=== PATIENT | female | born 1995 | race African-American/Black ===

== ENCOUNTER 2017-07-04 16:42 | Inpatient (IN) | payer MEDICAID ==
[~2017-07-04 16:42] MED LIST: Metoclopramide 10 MG/2 ML SDV ONE
[2017-07-04] MEDS ORDERED: Metoclopramide 10 MG/2 ML SDV IVPUSH ONE (16:56)
[2017-07-04] MEDS ORDERED: Citric Acid/Sodium Citrate Solution 30 ML Cup PO ONE (16:56)
[2017-07-04] MEDS ORDERED: Sodium Chloride 0.9% 10 ML Syringe FLUSH PRN (16:56)
--- NOTE | 2017-07-04 17:01 | PCM.LDHP ---
L&D History of Present Illness - General Date of Service: 07/04/17 Admit Problem/Dx: Patient Status Order with Admit Dx/Problem 07/04/17 16:57 Patient Status [ADT] Routine Admission Diagnosis/Problem Admission Diagnosis/Problem section Source of Information: Patient History Limitations: Reports: No Limitations - History of Present Illness Introduction:: 22 year old at 36w6d here with decreased movement for 3 days presented to clinic to see Dr. Fowler. Had non-reactive NST and BPP /10. Plan now. PNC with Dr. Fowler without complications other than transverse lie. - Related Data Allergies/Adverse Reactions: Allergies Allergy/AdvReac Type Severity Reaction Status Date / Time No Known Allergies Allergy Verified 11/15/15 23:10 Home Medications: Home Meds Vit No.129/Iron/FA [ Tablet] 1 each PO DAILY 11/15/15 [History] Past Medical History - Past Health History Medical/Surgical History: Denies Medical/Surgical History Social & Family History - Tobacco Use Smoking Status *Q: Former Smoker - Recreational Drug Use Recreational Drug Use: No - Living Situation & Occupation Living situation: Reports: with Significant Other Occupation: Employed H&P Review of Systems - Review of Systems: Review Of Systems: See Below General: Reports: No Symptoms HEENT: Reports: No Symptoms Pulmonary: Reports: No Symptoms Cardiovascular: Reports: No Symptoms Gastrointestinal: Reports: No Symptoms Genitourinary: Reports: No Symptoms Musculoskeletal: Reports: No Symptoms Skin: Reports: No Symptoms Psychiatric: Reports: No Symptoms Neurological: Reports: No Symptoms Hematologic/Lymphatic: Reports: No Symptoms Immunologic: Reports: No Symptoms L&D Exam - Exam Exam: See Below - OB Specific Contraction Intensity: Irritability Presentation: Transverse - Exam General: Alert, Oriented HEENT: PERRLA, Conjunctiva Clear, EACs Clear, EOMI, Hearing Intact, Mucosa Moist & [place], Nares Patent, Normal Nasal Septum, Posterior Pharynx Clear, TMs Clear Neck: Supple, Trachea Midline Lungs: Clear to Auscultation, Normal Respiratory Effort Cardiovascular: Regular Rate, Regular Rhythm GI/Abdominal Exam: Normal Bowel Sounds, Soft, Non-Tender, No Organomegaly, No Distention, No Abnormal Bruit, No Mass, Pelvis Stable Genitourinary: Normal external exam, Normal bimanual exam, Normal speculum exam Back Exam: Normal Inspection, Full Range of Motion Extremities: Normal Inspection, Normal Range of Motion, Non-Tender, No Pedal Edema, Normal Capillary Refill Skin: Warm, Dry, Intact Neurological: Cranial Nerves Intact, Reflexes Equal Bilateral Psychiatric: Alert, Normal Affect, Normal Mood Problem List Initiated/Reviewed/Updated: Yes Orders Last 24hrs: Active Orders 24 hr Category Date Time Status Patient Status [ADT] Routine ADT 07/04/17 16:57 Ordered Communication Order [RC] ROUTINE Care 07/04/17 16:57 Ordered Heart Tones [RC] PER UNIT ROUTINE Care 07/04/17 16:57 Ordered Peripheral IV Care [RC] . DIRECTED Care 07/04/17 16:57 Ordered Procedure Site Prep Instruct [RC] ASDIRECTED Care 07/04/17 16:57 Ordered Verify Patient Consent Obtain [RC] PER UNIT ROUTINE Care 07/04/17 16:57 Ordered Vital Signs [RC] PFP Care 07/04/17 16:57 Ordered CBC WITH AUTO DIFF [HEME] AM Lab 07/05/17 05:11 Ordered TYPE AND SCREEN [BBK] Routine Lab 07/04/17 16:57 Ordered Citric Acid/Sodium Citrate [Bicitra Solution] Med 07/04/17 16:56 Once 30 ml PO ONETIME ONE Lactated Ringers @ 125 MLS/HR(1000ml) Med 07/04/17 17:00 Ordered Lactated Ringers [Ringers, Lactated] 1,000 ml IV ASDIRECTED Metoclopramide [Reglan] Med 07/04/17 16:56 Once 10 mg IVPUSH ONETIME ONE Sodium Chloride 0.9% [Saline Flush] Med 07/04/17 16:56 Ordered 10 ml FLUSH ASDIRECTED PRN Peripheral IV Insertion Adult [OM.PC] Routine Oth 07/04/17 16:57 Ordered Schedule Procedure [COMM] Per Unit Routine Oth 07/04/17 16:57 Ordered Resuscitation Status Routine Resus Stat 07/04/17 16:56 Ordered Assessment/Plan Comment:: Non reasurring testing. now.
[2017-07-04] MEDS ORDERED: Morphine PF 1 MG/ML Amp ONE (17:03)
[2017-07-04] MEDS ORDERED: Bupivacaine 0.5% 30 ML SDV ONE (17:05)
[2017-07-04] MEDS ORDERED: Lactated Ringers 2,000 ML ONE (17:05)
[2017-07-04] MEDS ORDERED: Ondansetron 4 MG/2 ML SDV ONE (17:05)
[2017-07-04] MEDS ORDERED: Oxytocin 10 Units/1 ML SDV ONE (17:05)
[2017-07-04] MEDS ORDERED: ceFAZolin 1 GM Vial ONE (17:05)
[2017-07-04] MEDS ORDERED: Ketorolac 30 MG/ML SDV ONE (17:05)
[2017-07-04] MEDS: Lactated Ringers 1,000 ML IV SCH ×2 (17:15→19:56)
--- NOTE | 2017-07-04 17:18 | PCM.PREANE ---
Preanesthetic Assessment - Anesthesia/Transfusion/Family Hx Anesthesia History: Prior Anesthesia Without Reaction Family History of Anesthesia Reaction: No Transfusion History: No Prior Transfusion(s) - Review of Systems General: No Symptoms Pulmonary: No Symptoms Cardiovascular: No Symptoms Gastrointestinal: No Symptoms Neurological: No Symptoms - Physical Assessment NPO Status Date: 07/04/17 NPO Status Time: 12:30 Pulse: 83 O2 Sat by Pulse Oximetry: 100 Blood Pressure: 121/73 Temperature: 99.3 F Height: 5 ft 4 in Weight: 108.409 kg ASA Class: 2E Mental Status: Alert & Oriented x3 Airway Class: Mallampati = 1 Dentition: Reports: Normal Dentition Thyro-Mental Finger Breadths: 3 Mouth Opening Finger Breadths: 3 ROM/Head Extension: Full Lungs: Clear to Auscultation, Normal Respiratory Effort Cardiovascular: Regular Rate, Regular Rhythm - Allergies Allergies/Adverse Reactions: Allergies Allergy/AdvReac Type Severity Reaction Status Date / Time No Known Allergies Allergy Verified 11/15/15 23:10 - Blood Blood Available: No - Acknowledgements Anesthesia Type Planned: Spinal Pt an Appropriate Candidate for the Planned Anesthesia: Yes Alternatives and Risks of Anesthesia Discussed w Pt/Guardian: Yes Pt/Guardian Understands and Agrees with Anesthesia Plan: Yes PreAnesthesia Questionnaire - Past Health History Medical/Surgical History: Denies Medical/Surgical History Cardiovascular History: Reports: None Respiratory History: Reports: Asthma Gastrointestinal History: Reports: GERD - History Comment History Comment: cyclovir home meds - SUBSTANCE USE Smoking Status *Q: Former Smoker Tobacco Use Within Last Twelve Months: Cigarettes Second Hand Smoke Exposure: Yes Days Per Week of Alcohol Use: 0 Recreational Drug Use History: No - HOME MEDS Home Medications: Home Meds Vit No.129/Iron/FA [ Tablet] 1 each PO DAILY 11/15/15 [History] - CURRENT (IN HOUSE) MEDS Current Meds: Current Medications Lactated Ringer's (Ringers, Lactated) 1,000 mls @ 125 mls/hr IV ASDIRECTED [facility] Sodium Chloride (Saline Flush) 10 ml FLUSH ASDIRECTED PRN PRN Reason: Keep Vein Open Discontinued Medications Bupivacaine HCl (Marcaine 0.5%) Confirm Administered Dose 30 ml .ROUTE .STK-MED ONE Stop: 07/04/17 17:06 Cefazolin Sodium (Ancef) Confirm Administered Dose 2 gm .ROUTE .STK-MED ONE Stop: 07/04/17 17:06 Citric Acid/Sodium Citrate (Bicitra Solution) 30 ml PO ONETIME ONE Stop: 07/04/17 16:57 Lactated Ringer's (Ringers, Lactated) Confirm Administered Dose 2,000 mls @ as directed .ROUTE .STK-MED ONE Stop: 07/04/17 17:06 Ketorolac Tromethamine (Toradol) Confirm Administered Dose 30 mg .ROUTE .STK- MED ONE Stop: 07/04/17 17:06 Metoclopramide HCl (Reglan) 10 mg IVPUSH ONETIME ONE Stop: 07/04/17 16:57 Morphine Sulfate (Duramorph Pf) Confirm Administered Dose 1 mg .ROUTE .STK-MED ONE Stop: 07/04/17 17:04 Ondansetron HCl (Zofran) Confirm Administered Dose 4 mg .ROUTE .STK-MED ONE Stop: 07/04/17 17:06 Oxytocin (Pitocin) Confirm Administered Dose 10 unit .ROUTE .STK-MED ONE Stop: 07/04/17 17:06
[2017-07-04] MEDS ORDERED: Phenylephrine/Normal Saline 100 MCG/ML 10 ML Syringe ONE (17:41)
[2017-07-04] MEDS ORDERED: Ondansetron 4 MG/2 ML SDV IVPUSH PRN (17:57)
[2017-07-04] MEDS ORDERED: diphenhydrAMINE 50 MG/ML SDV IVPUSH PRN ×2 (17:57→19:34)
[2017-07-04] MEDS ORDERED: fentaNYL 100 MCG/2 ML SDV IVPUSH PRN (17:57)
--- NOTE | 2017-07-04 18:38 | PCM.POSTAN ---
POST ANESTHESIA ASSESSMENT - MENTAL STATUS Mental Status: Alert, Oriented - VITAL SIGNS Pulse Rate: 92 SaO2: 100 Resp Rate: 18 Blood Pressure: 111/70 Temperature: 97.2 F - RESPIRATORY Respiratory Status: Respiratory Rate WNL, Airway Patent, O2 Saturation Stable, Supplemental Oxygen - CARDIOVASCULAR CV Status: Pulse Rate WNL, Blood Pressure Stable - GASTROINTESTINAL GI Status: No Symptoms - PAIN Pain Score: 0 - POST OP HYDRATION Hydration Status: Adequate & Stable
--- NOTE | 2017-07-04 18:49 | PCM.OPNOTE ---
- General Post-Op/Procedure Note Date of Surgery/Procedure: 07/04/17 Operative Procedure(s): primary for transverse lie. T incision Findings: Transverse back down. Viable female at 1752. 7#9oz. 8/9 APGARS. Normal uterus tubes and ovaries. Pre Op Diagnosis: non-reassuring status, transverse lie Post-Op Diagnosis: Same Anesthesia Technique: Spinal Primary Surgeon: Gricelda Chavez Pallet Assembler: Indira Aguilar Reason Pallet Assembler Was Necessary: retraction, patient safety Fluid Replacement, Intraop: 3,500 Output, Urine Amount: 150 EBL in mLs: 1,500 Complications: None Condition: Good Free Text/Narrative:: The patient was taken to the operating room where epidural anesthesia was dosed to surgical levels without difficulty. The patient was prepped and draped in the usual sterile fashion in the dorsal supine position with a leftward tilt. A Pfannenstiel skin incision was made with the scalpel and carried through to the underlying layer of fascia. The fascia was incised in the midline and extended laterally using Chavez scissors. Steven clamps were used to elevate the superior aspect of the fascial incision, which was elevated, and the underlying rectus muscles were dissected off bluntly and using Chavez scissors. Attention was then turned to the inferior aspect of the fascial incision, which in similar fashion was grasped with Steven clamps, elevated, and the underlying rectus muscles were dissected off bluntly and using the chavez. The rectus muscles were dissected in the midline. The peritoneum was entered bluntly; this incision was extended superiorly and inferiorly with good visualization of the bladder. The bladder blade was inserted. The vesicouterine peritoneum was identified and entered sharply using Metzenbaum scissors. This incision was extended laterally and the bladder flap was created digitally. The bladder blade was reinserted. The lower uterine segment was incised in a transverse fashion using the scalpel and with digital traction. Clear fluid was noted. Foot grasped through incision, significant difficulty encountered with lie. Incision t created upward with bandage scissors. Other foot then able to be grasped and delivered in breech fashion. The was subsequently handed to the awaiting rn acute whose presence had been requested.. The placenta was delivered spontaneously intact with a three- vessel cord noted. The uterus was exteriorized and cleared of all clots and debris. The uterine incision was repaired in 2 layers using 0 monocryl starting with t portion. Hemostasis was visualized. Hemostasis was visualized bilaterally. The uterus was returned to the abdomen. The uterine incision was reexamined and it was noted to be hemostatic. The pelvis was copiously irrigated. The fascia was closed with 1 PDS suture, and the skin was closed with 3-0 monocryl. Sponge, lap, and instrument counts were correct x2. The patient was stable at the completion of the procedure and was subsequently transferred to the recovery room in stable condition.
[2017-07-04] MEDS ORDERED: ePHEDrine 50 MG/ML SDV IVPUSH PRN (19:34)
[2017-07-04] MEDS ORDERED: Lanolin 100% Cream 7 GM Tube TOP PRN (19:34)
[2017-07-04] MEDS ORDERED: Naloxone 0.4 MG/ML SDV IVPUSH PRN (19:34)
[2017-07-04] MEDS ORDERED: Dextrose 5%-Lactated Ringers 1,000 ML IV SCH (19:34)
[2017-07-04] MEDS: Ketorolac 30 MG/ML SDV IVPUSH SCH (23:07)
[2017-07-05] MEDS: Ketorolac 30 MG/ML SDV IVPUSH SCH ×2 (05:38→11:18)
--- NOTE | 2017-07-05 08:00 | PCM48HPAN ---
Post Anesthesia Note - EVALUATION WITHIN 48HRS OF ANESTHETIC Vital Signs in Normal Range: Yes Patient Participated in Evaluation: Yes Respiratory Function Stable: Yes Airway Patent: Yes Cardiovascular Function Stable: Yes Hydration Status Stable: Yes Pain Control Satisfactory: Yes Nausea and Vomiting Control Satisfactory: Yes Mental Status Recovered: Yes - COMMENTS/OBSERVATIONS Free Text/Narrative:: no anesthesia complications
--- NOTE | 2017-07-05 08:40 | PCM.PNPP ---
- General Info Date of Service: 07/05/17 Functional Status: Reports: Pain Controlled - Review of Systems General: Reports: No Symptoms HEENT: Reports: No Symptoms Pulmonary: Reports: No Symptoms Cardiovascular: Reports: No Symptoms Gastrointestinal: Reports: No Symptoms Genitourinary: Reports: No Symptoms Musculoskeletal: Reports: No Symptoms Skin: Reports: No Symptoms Neurological: Reports: No Symptoms Psychiatric: Reports: No Symptoms - General Info Date of Service: 07/05/17 - Patient Data Vital Signs - Most Recent: Last Vital Signs Temp 37.0 C 07/05/17 04:10 Pulse 92 07/05/17 04:10 Resp 16 07/05/17 04:10 BP 103/62 07/05/17 04:10 Pulse Ox 100 07/05/17 04:10 Weight - Most Recent: 108.409 kg I&O - Last 24 Hours: Intake & Output 07/04/17 07/05/17 07/05/17 22:59 06:59 14:59 Intake Total 4150 Output Total 330 Balance 3820 Lab Results - Last 24 Hours: Laboratory Results - last 24 hr 07/04/17 07/04/17 07/04/17 Range/Units 17:08 17:10 18:05 WBC 13.09 H (3.98-10.04) K/mm3 RBC 4.29 (3.98-5.22) M/mm3 Hgb 10.4 L (11.2-15.7) gm/L Hct 31.9 L (34.1-44.9) % MCV 74.4 L (79.4-94.8) fl MCH 24.2 L (25.6-32.2) pg MCHC 32.6 (32.2-35.5) g/dl RDW Std Deviation 42.7 (36.4-46.3) fL Plt Count 238 (182-369) K/mm3 MPV 12.0 (9.4-12.3) fl Neut % (Auto) 86.0 H (34.0-71.1) % Lymph % (Auto) 8.1 L (19.3-51.7) % [place] % (Auto) 5.0 (4.7-12.5) % Eos % (Auto) 0.5 L (0.7-5.8) Baso % (Auto) 0.1 (0.1-1.2) % Neut # (Auto) 11.26 H (1.56-6.13) K/mm3 Lymph # (Auto) 1.06 L (1.18-3.74) K/mm3 [place] # (Auto) 0.66 H (0.24-0.36) K/mm3 Eos # (Auto) 0.06 (0.04-0.36) K/mm3 Baso # (Auto) 0.01 (0.01-0.08) K/mm3 Manual Slide Review Abnormal smear Cord ABG pH 7.34 H (7.22-7.32) Cord ABG pCO2 53.1 (42-58) Cord ABG pO2 13 (12-24) Cord ABG HCO3 27.7 H (24-26) Cord ABG Base Excess 1.4 H (-5.5-0.1) Cord VBG pH 7.40 (7.28-7.40) Cord VBG pCO2 45.5 H (32.8-38.6) Cord VBG pO2 34 H (28-32) Cord VBG HCO3 27.5 H (19-24) Cord VBG Base Excess 2.6 H (-4.4-0.4) Blood Type A POSITIVE Gel Antibody Screen Negative Med Orders - Current: Current Medications Diphenhydramine HCl (Benadryl) 25 mg IVPUSH Q6H PRN PRN Reason: Itching or Nausea Emollient Ointment (Lansinoh Hpa) 0 gm TOP ASDIRECTED PRN PRN Reason: Sore Nipples Ephedrine Sulfate (Ephedrine Sulfate) 5 mg IVPUSH SEECOMMENT PRN PRN Reason: Other Ketorolac Tromethamine (Toradol) 30 mg IVPUSH Q6H [facility] Stop: 07/05/17 11:01 Last Admin: 07/05/17 05:38 Dose: 30 mg Naloxone HCl (Narcan) 0.1 mg IVPUSH SEECOMMENT PRN PRN Reason: Respiratory Depression Oxycodone/Acetaminophen (Percocet 325-5 Mg) 2 tab PO Q6H PRN PRN Reason: Pain (moderate 4-6) Discontinued Medications Bupivacaine HCl (Marcaine 0.5%) Confirm Administered Dose 30 ml .ROUTE .STK-MED ONE Stop: 07/04/17 17:06 Last Admin: 07/04/17 17:45 Dose: 20 ml Cefazolin Sodium (Ancef) Confirm Administered Dose 2 gm .ROUTE .STK-MED ONE Stop: 07/04/17 17:06 Citric Acid/Sodium Citrate (Bicitra Solution) 30 ml PO ONETIME ONE Stop: 07/04/17 16:57 Last Admin: 07/04/17 17:20 Dose: 30 ml Diphenhydramine HCl (Benadryl) 25 mg IVPUSH Q6H PRN PRN Reason: pruritis Fentanyl (Sublimaze) 50 mcg IVPUSH Q5M PRN PRN Reason: Pain Lactated Ringer's (Ringers, Lactated) 1,000 mls @ 125 mls/hr IV ASDIRECTED [facility] Last Admin: 07/04/17 19:56 Dose: 125 mls/hr Lactated Ringer's (Ringers, Lactated) Confirm Administered Dose 2,000 mls @ as directed .ROUTE .STK-MED ONE Stop: 07/04/17 17:06 Dextrose/Lactated Ringer's (Dextrose 5%-Lactated Ringers) 1,000 mls @ 125 mls/ hr IV ASDIRECTED [facility] Stop: 07/05/17 03:33 Last Admin: 07/04/17 20:57 Dose: 125 mls/hr Ketorolac Tromethamine (Toradol) Confirm Administered Dose 30 mg .ROUTE .STK- MED ONE Stop: 07/04/17 17:06 Metoclopramide HCl (Reglan) 10 mg IVPUSH ONETIME ONE Stop: 07/04/17 16:57 Last Admin: 07/04/17 17:20 Dose: 10 mg Metoclopramide HCl (Reglan) Confirm Administered Dose 10 mg .ROUTE .STK-MED ONE Stop: 07/04/17 16:19 Last Admin: 07/04/17 17:35 Dose: Not Given Morphine Sulfate (Duramorph Pf) Confirm Administered Dose 1 mg .ROUTE .STK-MED ONE Stop: 07/04/17 17:04 Ondansetron HCl (Zofran) Confirm Administered Dose 4 mg .ROUTE .STK-MED ONE Stop: 07/04/17 17:06 Ondansetron HCl (Zofran) 4 mg IVPUSH ONETIME PRN PRN Reason: Nausea/Vomiting Oxytocin (Pitocin) Confirm Administered Dose 10 unit .ROUTE .STK-MED ONE Stop: 07/04/17 17:06 Phenylephrine HCl (Phenylephrine In Ns 100 Mcg/Ml) Confirm Administered Dose 1 mg .ROUTE .STK-MED ONE Stop: 07/04/17 17:42 Sodium Chloride (Saline Flush) 10 ml FLUSH ASDIRECTED PRN PRN Reason: Keep Vein Open - Infant Interaction Infant Disposition, : [place] at Bedside Support Person: Significant Other - Recovery Exam Lochia Amount: Small Lochia Color: Rubra/Red Perineum Description: Intact, Minimal Bruising/Swelling - Exam General: Alert, Oriented HEENT: Pupils Equal Neck: Supple Lungs: Clear to Auscultation, Normal Respiratory Effort Cardiovascular: Regular Rate, Regular Rhythm GI/Abdominal Exam: Normal Bowel Sounds, Soft, Non-Tender, No Organomegaly, No Distention, No Abnormal Bruit, No Mass, Pelvis Stable Extremities: Normal Inspection, Normal Range of Motion, Non-Tender, No Pedal Edema, Normal Capillary Refill Skin: Warm Wound/Incisions: Healing Well Neurological: No New Focal Deficit Psy/Mental Status: Alert, Normal Affect, Normal Mood - Problem List Review Problem List Initiated/Reviewed/Updated: Yes - My Orders Last 24 Hours: My Active Orders 07/04/17 16:56 Resuscitation Status Routine 07/04/17 16:57 Vital Signs [RC] PFP 07/04/17 19:34 Communication Order [RC] PER UNIT ROUTINE Communication Order [RC] PER UNIT ROUTINE Communication Order [RC] PER UNIT ROUTINE Notify Provider Intake and Out [RC] ASDIRECTED Vital Signs [RC] 08,12,20 Acetaminophen/oxyCODONE [Percocet 325-5 MG] 2 tab PO Q6H PRN Lanolin [Lansinoh HPA] See Dose Instructions TOP ASDIRECTED PRN Naloxone [Narcan] 0.1 mg IVPUSH SEECOMMENT PRN diphenhydrAMINE [Benadryl] 25 mg IVPUSH Q6H PRN ePHEDrine [ePHEDrine Sulfate] 5 mg IVPUSH SEECOMMENT PRN Assess Lochia [WOMSER] Per Unit Routine Assess Uterine Involution [WOMSER] Per Unit Routine Medication Administration Instruction [OM.PC] Routine 07/04/17 23:00 Ketorolac [Toradol] 30 mg IVPUSH Q6H 07/05/17 18:50 Urinary Catheter Removal [RC] Per Unit Routine - Assessment Assessment:: POD1 Doing great. Pain controlled. - Plan Plan:: Routine postop care.
[2017-07-05] MEDS: Acetaminophen/oxyCODONE 325-5 MG Tab PO PRN ×2 (17:09→23:34)
[2017-07-06] MEDS: Acetaminophen/oxyCODONE 325-5 MG Tab PO PRN ×3 (06:25→18:53)
[2017-07-06] MEDS: Docusate Sodium 100 MG Cap PO PRN (14:21)
[2017-07-07] MEDS: Acetaminophen/oxyCODONE 325-5 MG Tab PO PRN ×3 (00:53→12:59)
--- NOTE | 2017-07-07 06:53 | PCM.DCSUM1 ---
Discharge Summary - Hospital Course Brief History: Admitted for for transverse after BPP 06/27. Uncomplicated course. - Discharge Data Discharge Date: 07/07/17 Discharge Disposition: Home, Self-Care 01 Condition: Good - Patient Summary/Data Operative Procedure(s) Performed: primary for transverse lie. T incision - Patient Instructions Diet: Heart Healthy Diet Activity: No Strenuous Activities Activity, Other: pelvic rest Driving: Do Not Drive Wound/Incision Care: Keep Operative Site/Wound Site Clean and Dry Notify Provider of: Fever, Increased Pain, Swelling and Redness, Drainage, Nausea and/or Vomiting - Discharge Plan Home Medications: Home Meds Vit No.129/Iron/FA [ Tablet] 1 each PO DAILY 11/15/15 [History] Referrals: Gricelda Chavez MD [Physician] - (2 weeks and 6 weeks, 6 week can be with Dr. Fowler if she prefers) - Discharge Summary/Plan Comment DC Time >30 min.: No - General Info Date of Service: 07/07/17 Functional Status: Reports: Pain Controlled - Review of Systems General: Reports: No Symptoms HEENT: Reports: No Symptoms Pulmonary: Reports: No Symptoms Cardiovascular: Reports: No Symptoms Gastrointestinal: Reports: No Symptoms Genitourinary: Reports: No Symptoms Musculoskeletal: Reports: No Symptoms Skin: Reports: No Symptoms Neurological: Reports: No Symptoms Psychiatric: Reports: No Symptoms - Patient Data Vitals - Most Recent: Last Vital Signs Temp 36.6 C 07/07/17 04:00 Pulse 98 07/07/17 04:00 Resp 15 07/07/17 04:00 BP 114/55 L 07/07/17 04:00 Pulse Ox 98 07/07/17 04:00 Weight - Most Recent: 108.409 kg I&O - Last 24 hours: Intake & Output 07/06/17 07/06/17 07/07/17 14:59 22:59 06:59 Intake Total 560 Balance 560 Med Orders - Current: Current Medications Diphenhydramine HCl (Benadryl) 25 mg IVPUSH Q6H PRN PRN Reason: Itching or Nausea Docusate Sodium (Colace) 200 mg PO BID PRN PRN Reason: Constipation Last Admin: 07/06/17 14:21 Dose: 200 mg Emollient Ointment (Lansinoh Hpa) 0 gm TOP ASDIRECTED PRN PRN Reason: Sore Nipples Ephedrine Sulfate (Ephedrine Sulfate) 5 mg IVPUSH SEECOMMENT PRN PRN Reason: Other Naloxone HCl (Narcan) 0.1 mg IVPUSH SEECOMMENT PRN PRN Reason: Respiratory Depression Oxycodone/Acetaminophen (Percocet 325-5 Mg) 2 tab PO Q6H PRN PRN Reason: Pain (moderate 4-6) Last Admin: 07/07/17 00:53 Dose: 2 tab Discontinued Medications Bupivacaine HCl (Marcaine 0.5%) Confirm Administered Dose 30 ml .ROUTE .STK-MED ONE Stop: 07/04/17 17:06 Last Admin: 07/04/17 17:45 Dose: 20 ml Cefazolin Sodium (Ancef) Confirm Administered Dose 2 gm .ROUTE .STK-MED ONE Stop: 07/04/17 17:06 Citric Acid/Sodium Citrate (Bicitra Solution) 30 ml PO ONETIME ONE Stop: 07/04/17 16:57 Last Admin: 07/04/17 17:20 Dose: 30 ml Diphenhydramine HCl (Benadryl) 25 mg IVPUSH Q6H PRN PRN Reason: pruritis Fentanyl (Sublimaze) 50 mcg IVPUSH Q5M PRN PRN Reason: Pain Lactated Ringer's (Ringers, Lactated) 1,000 mls @ 125 mls/hr IV ASDIRECTED [facility] Last Admin: 07/04/17 19:56 Dose: 125 mls/hr Lactated Ringer's (Ringers, Lactated) Confirm Administered Dose 2,000 mls @ as directed .ROUTE .STK-MED ONE Stop: 07/04/17 17:06 Dextrose/Lactated Ringer's (Dextrose 5%-Lactated Ringers) 1,000 mls @ 125 mls/ hr IV ASDIRECTED [facility] Stop: 07/05/17 03:33 Last Admin: 07/04/17 20:57 Dose: 125 mls/hr Ketorolac Tromethamine (Toradol) Confirm Administered Dose 30 mg .ROUTE .STK- MED ONE Stop: 07/04/17 17:06 Ketorolac Tromethamine (Toradol) 30 mg IVPUSH Q6H [facility] Stop: 07/05/17 11:01 Last Admin: 07/05/17 11:18 Dose: 30 mg Metoclopramide HCl (Reglan) 10 mg IVPUSH ONETIME ONE Stop: 07/04/17 16:57 Last Admin: 07/04/17 17:20 Dose: 10 mg Metoclopramide HCl (Reglan) Confirm Administered Dose 10 mg .ROUTE .STK-MED ONE Stop: 07/04/17 16:19 Last Admin: 07/04/17 17:35 Dose: Not Given Morphine Sulfate (Duramorph Pf) Confirm Administered Dose 1 mg .ROUTE .STK-MED ONE Stop: 07/04/17 17:04 Ondansetron HCl (Zofran) Confirm Administered Dose 4 mg .ROUTE .STK-MED ONE Stop: 07/04/17 17:06 Ondansetron HCl (Zofran) 4 mg IVPUSH ONETIME PRN PRN Reason: Nausea/Vomiting Oxytocin (Pitocin) Confirm Administered Dose 10 unit .ROUTE .STK-MED ONE Stop: 07/04/17 17:06 Phenylephrine HCl (Phenylephrine In Ns 100 Mcg/Ml) Confirm Administered Dose 1 mg .ROUTE .STK-MED ONE Stop: 07/04/17 17:42 Sodium Chloride (Saline Flush) 10 ml FLUSH ASDIRECTED PRN PRN Reason: Keep Vein Open - Exam General: Reports: Alert, Oriented HEENT: Reports: Pupils Equal, Pupils Reactive, EOMI, Mucous Membr. Moist/[place] Neck: Reports: Supple Lungs: Reports: Clear to Auscultation, Normal Respiratory Effort Cardiovascular: Reports: Regular Rate, Regular Rhythm GI/Abdominal Exam: Normal Bowel Sounds, Soft, Non-Tender, No Organomegaly, No Distention, No Abnormal Bruit, No Mass, Pelvis Stable (Female) Exam: Normal External Exam, Normal Speculum Exam, Normal Bimanual Exam Back Exam: Reports: Normal Inspection, Full Range of Motion Extremities: Normal Inspection, Normal Range of Motion, Non-Tender, No Pedal Edema, Normal Capillary Refill Skin: Reports: Warm, Dry, Intact Wound/Incisions: Reports: Healing Well Neurological: Reports: No New Focal Deficit Psy/Mental Status: Reports: Alert, Normal Affect, Normal Mood
[2017-07-07] MEDS: Docusate Sodium 100 MG Cap PO PRN (08:47)
[2017-07-07 11:29] VITALS: BP 107/66
[2017-07-07] MEDS ORDERED: Measles, Mumps & Rubella Vaccine 0.5 ML SDV SUBCUT ONE (11:30)
== END 2017-07-07 16:00 | disposition home or self-care (01) | DRG 766 ==
LOC: JD.OBCHECK 16:42 → JD.OB 16:43
PROVIDERS: ADMIT Obstetrics & Gynecology; ATTEND Obstetrics & Gynecology
PROC: 10D00Z1 Extraction of Products of Conception, Low, Open Approach (ICD-10-PCS; principal; 2017-07-04)
PROC: 3E0234Z Introduction of Serum, Toxoid and Vaccine into Muscle, Percutaneous Approach (ICD-10-PCS; 2017-07-07)
DX: O32.2XX0 Maternal care for transverse and oblique lie, not applicable or unspecified (principal); Z37.0 Single live birth; O36.8130 Decreased fetal movements, third trimester, not applicable or unspecified; Z3A.36 36 weeks gestation of pregnancy; Z87.891 Personal history of nicotine dependence; Z23 Encounter for immunization
CPT/HCPCS: 01961; 36415; 36600; 59025; 82803; 85025; 86850; 86900; 86901; 90471; 90707; 94762; A9270-GY; J0690; J1885; J2274; J2405; J2590; J2765; J7042; J7120

== ENCOUNTER 2018-11-18 14:14 | Emergency (ER) | payer MEDICAID, SELFPAY ==
[2018-11-18 14:27] VITALS: BP 107/75
[2018-11-18] MEDS ORDERED: Acetaminophen/HYDROcodone 325-5 MG Tab PO ONE (15:02)
--- NOTE | 2018-11-18 15:22 | EDM.PDOC ---
ED HPI GENERAL MEDICAL PROBLEM - General Chief Complaint: Abdominal Pain Stated Complaint: STOMACH PAIN HAD A TUBAL/MAYBE PG Time Seen by Provider: 11/18/18 14:43 Source of Information: Reports: Patient History Limitations: Reports: No Limitations - History of Present Illness INITIAL COMMENTS - FREE TEXT/NARRATIVE: Patient is a 23-year-old female who presents ED complaining of lower abdomen pain described as a crampy sharp sensation that waxes and wanes in intensity. States last menstrual period was the first part of October. Recently took a test this past Monday which came back positive. She was seen by a walk -in provider on with blood work obtained which verified she is . She had repeat blood work performed on Monday with no results as of yet. They were evaluating her quantitative hCG to ensure it is trending upward. With that being said she developed some pain to the areas as listed above. She' s had scant bleeding 3 days prior and none since. She has a history of ectopic one to 2 years ago that required surgical intervention. She is concerned that she may have a ectopic . She also notes some pain with urination. Denies any diarrhea, vaginal lesions, constipation, fever, nausea vomiting, abnormal vaginal discharge, or recent sexual intercourse/activities or precipitating discomfort. Pain is mild to moderate intensity. She has not taken anything for the pain. She does carry a history of herpes and is on no meds at this point. She has no SURGICAL ENDOSCOPIST specialists. Lower Abdominal Pain Score (Numeric/FACES): 7 - Related Data Allergies Allergy/AdvReac Type Severity Reaction Status Date / Time No Known Allergies Allergy Verified 11/15/15 23:10 Home Meds: Home Meds Acetaminophen/oxyCODONE [Percocet 325-5 MG] 2 tab PO Q6H PRN #20 tablet [Rx] Docusate Sodium [Colace] 200 mg PO BID PRN cap 07/07/17 [Rx] Vit No.129/Iron/FA [ One Daily Tablet] 1 each PO DAILY #30 [Rx] Past Medical History - Past Health History Medical/Surgical History: Denies Medical/Surgical History HEENT History: Reports: None Cardiovascular History: Reports: None Respiratory History: Reports: Asthma Gastrointestinal History: Reports: GERD SURGICAL ENDOSCOPIST History: Reports: - Past Surgical History HEENT Surgical History: Reports: Oral Surgery Female Surgical History: Reports: Section - History Comment History Comment: cyclovir home meds Social & Family History - Family History Family Medical History: Unobtainable - Living Situation & Occupation Living situation: Reports: with Significant Other Occupation: Employed ED ROS GENERAL - Review of Systems Review Of Systems: ROS reveals no pertinent complaints other than HPI. ED EXAM - Physical Exam Exam: See Below Exam Limited By: No Limitations General Appearance: Alert, WD/WN, No Apparent Distress Ears: Hearing Grossly Normal Nose: Normal Inspection Throat/Mouth: Normal Voice, No Airway Compromise Head: Atraumatic, Normocephalic Neck: Normal Inspection, Supple Respiratory/Chest: No Respiratory Distress, Lungs Clear, Normal Breath Sounds, No Accessory Muscle Use Cardiovascular: Normal Peripheral Pulses, Regular Rate, Rhythm GI/Abdominal Exam: Normal Bowel Sounds, Soft, No Organomegaly, Tender ( Suprapubic and along the left/right adnexa) (Female) Exam: Other (Deferred) Back Exam: Normal Inspection. No: CVA Tenderness (L), CVA Tenderness (R) Extremities: Normal Inspection Neurological: Alert, Oriented, Normal Cognition, No Motor/Sensory Deficits Psychiatric: Normal Affect, Normal Mood Skin Exam: Warm, Dry, Intact, Normal Color Course - Vital Signs Last Recorded V/S: Last Vital Signs Temp 97.7 F 11/18/18 14:26 Pulse 67 11/18/18 14:26 Resp BP 107/75 11/18/18 14:26 Pulse Ox 100 11/18/18 14:26 - Orders/Labs/Meds Labs: Laboratory Tests 11/18/18 11/18/18 11/18/18 Range/Units 15:14 15:14 17:13 WBC 10.16 H (3.98-10.04) K/mm3 RBC 4.46 (3.98-5.22) M/mm3 Hgb 11.7 (11.2-15.7) gm/L Hct 35.6 (34.1-44.9) % MCV 79.8 D (79.4-94.8) fl MCH 26.2 (25.6-32.2) pg MCHC 32.9 (32.2-35.5) g/dl RDW Std Deviation 42.7 (36.4-46.3) fL Plt Count 276 (182-369) K/mm3 MPV 11.0 (9.4-12.3) fl Neutrophils % (Manual) 78 H (40-60) % Band Neutrophils % 0 (0-10) % Lymphocytes % (Manual) 15 L (20-40) % Atypical Lymphs % 0 % Monocytes % (Manual) 4 (2-10) % Eosinophils % (Manual) 2 (0.7-5.8) % Basophils % (Manual) 1 (0.1-1.2) Platelet Estimate Adequate Hypochromasia 1+ slight RBC Morph Comment Abnormal Sodium 140 (136-145) mEq/L Potassium 3.7 (3.5-5.1) mEq/L Chloride 106 (98-107) mEq/L Carbon Dioxide 27 (21-32) mEq/L Anion Gap 10.7 (5-15) BUN 9 (7-18) mg/dL Creatinine 0.7 (0.55-1.02) mg/dL Est Cr Clr Drug Dosing 106.09 mL/min Estimated GFR (MDRD) > 60 (>60) mL/min BUN/Creatinine Ratio 12.9 L (14-18) Glucose 86 (74-106) mg/dL Calcium 8.6 (8.5-10.1) mg/dL Total Bilirubin 0.3 (0.2-1.0) mg/dL AST 14 L (15-37) U/L ALT < 6 L (14-59) U/L Alkaline Phosphatase 84 (46-116) U/L C-Reactive Protein < 0.2 (<1.0) mg/dL Total Protein 7.6 (6.4-8.2) g/dl Albumin 3.5 (3.4-5.0) g/dl Globulin 4.1 gm/dL Albumin/Globulin Ratio 0.9 L (1-2) HCG, Quant 144.0 mIU/mL Urine Color Yellow (Yellow) Urine Appearance Clear (Clear) Urine pH 7.0 (5.0-8.0) Ur Specific [place] 1.015 (1.005-1.030) Urine Protein Negative (Negative) Urine Glucose (UA) Negative (Negative) Urine Ketones Negative (Negative) Urine Occult Blood Negative (Negative) Urine Nitrite Negative (Negative) Urine Bilirubin Negative (Negative) Urine Urobilinogen 0.2 (0.2-1.0) Ur Leukocyte Esterase Negative (Negative) Urine RBC Not seen (0-5) /hpf Urine WBC 0-5 (0-5) /hpf Ur Squamous Epith Cells 5-10 H (0-5) /hpf Urine Bacteria Not seen (FEW) /hpf Urine Mucus Not seen (FEW) /hpf Meds: Medications Discontinued Medications Generic Name Dose Route Start Last Admin Trade Name Charito PRN Reason Stop Dose Admin Hydrocodone Bitart/Acetaminophen 1 tab 11/18/18 15:02 11/18/18 15:14 [place] 325-5 Mg PO 11/18/18 15:03 1 tab ONETIME ONE Administration - Re-Assessments/Exams Free Text/Narrative Re-Assessment/Exam: Will obtain CBC, chem 14, CRP, hCG quantitative, urinalysis, and also OB transvaginal to evaluate for ectopic . Ordered [place] one tab by mouth. Labs reviewed: CBC indicated White blood cell count of 10.16, neutrophil percent is 78, hemoglobin 9.7, platelet count normal. Chemistry panel is essentially normal. CRP within normal limits. HCG quantitative is quite low 144. Per patient this is decreased from 500 from initial examination over at the walk-in clinic. Pelvic ultrasound: Multiple real-time images were obtained transvaginally. Comparison: No prior pelvic imaging. Uterus is anteverted. No intrauterine gestational sac is seen. Small and incidental nabothian cyst is seen. Endometrial thickness is normal measuring 7 mm. Simple cyst is noted within the left ovary measuring 2.9 cm. Small cysts are seen within the right ovary which are believed to be physiologic with largest measuring 1.6 cm. No free fluid is seen. Impression: 1. Findings which are believed to be incidental. Nothing acute is appreciated on pelvic ultrasound study. Based on ultrasound findings and serial hCG quantitatives it appears patient has miscarried. Patient has not provide a UA sample as of yet. Will await to discharge until UA results are available. 11/18/18 18:07 UA negative. I will discharge patient home with instructions to followup with SURGICAL ENDOSCOPIST in the next 3 days for reevaluation. Return precautions discussed with the patient. Discharge instructions as documented. Departure - Departure Time of Disposition: 18:08 Disposition: Home, Self-Care 01 Condition: Good Clinical Impression: Complete miscarriage - Discharge Information Instructions: Miscarriage, [id number] Referrals: Gricelda Chavez MD [Primary Care Provider] - Forms: ED Department Discharge Additional Instructions: As discussed your quantitative hCG has trended downward from 500-140. The ultrasound revealed no intrauterine suggesting you have miscarried with history of recent heavy vaginal bleeding that has subsided. Your UA was negative for infection. I suggest following up with SURGICAL ENDOSCOPIST specialist of your choice in the next 3 days for reevaluation. If you develop any new or worsening symptoms please return back to the ED for reevaluation. No driving today since receiving a sedative medication.
--- NOTE | 2018-11-18 17:17 | US ---
Pelvic ultrasound: Multiple real-time images were obtained transvaginally. Comparison: No prior pelvic imaging. Uterus is anteverted. No intrauterine gestational sac is seen. Small and incidental nabothian cyst is seen. Endometrial thickness is normal measuring 7 mm. Simple cyst is noted within the left ovary measuring 2.9 cm. Small cysts are seen within the right ovary which are believed to be physiologic with largest measuring 1.6 cm. No free fluid is seen. Impression: 1. Findings which are believed to be incidental. Nothing acute is appreciated on pelvic ultrasound study. Diagnostic code #2
== END 2018-11-18 18:15 | disposition home or self-care (01) ==
LOC: JD.ED 14:14
DX: O03.9 Complete or unspecified spontaneous abortion without complication (principal); Z79.899 Other long term (current) drug therapy
CPT/HCPCS: 36415; 76817; 80053; 81001; 84702; 85007; 85027; 86140; 99284; A9270

== ENCOUNTER 2019-05-26 12:42 | Emergency (ER) | payer SELFPAY ==
[2019-05-26 12:52] VITALS: BP 117/69; PULSE 98
[2019-05-26] MEDS ORDERED: Sodium Chloride 0.9% 10 ML Syringe FLUSH PRN (12:57)
[2019-05-26] MEDS ORDERED: Lactated Ringers 1,000 ML IV ONE (13:09)
--- NOTE | 2019-05-26 13:15 | EDM.PDOC ---
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 Patient is a G7, , all of which were spontaneous miscarriages after a tubal ligation done in [address] Chavez. Regarding :. Patient's last menstrual period was sometime in March, and took a home test around 2 weeks ago, and this was positive. She believes that she is anywhere from 4-8weeks by her count. Patient is having mild vaginal spotting, not enough to warrant even the use of a pad at this time. She states there is a little bit of pink-tinged fluid when she wipes. She notes that she is having chronic low back pain as well, and mild amount of lower abdominal pain. She denies any dysuria/frequency/ urgency. Patient states that she will be establishing with Dr. Hernandez for this , and was wondering about the possibility of being referred for more definitive management, regarding her obviously failed tubal ligation done in July 2018. Patient is not experiencing any increased nausea/vomiting. Regarding flulike symptoms: The patient states that symptoms developed 2 days ago, she is experiencing a dry intermittent hacking like cough, and she states she has a generalized headache, and her whole body hurts, she feels as if she has been run over by a truck. She is not complaining of any obvious chest pain or shortness of breath. She states she has not had much of an appetite as well , and has not really eaten much since yesterday. 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: , Spontaneous (4 spontaneous abortions since July 2018) : 7 Para: 2 Musculoskeletal History: Reports: Back Pain, Chronic (lumbar back pain) - Past Surgical History HEENT Surgical History: Reports: Oral Surgery Female Surgical History: Reports: Section, Tubal Ligation (done July 2018) - History Comment History Comment: cyclovir home meds Social & Family History - Family History Family Medical History: Unobtainable - Tobacco Use Smoking Status *Q: Current Every Day Smoker Years of Tobacco use: 5 Packs/Tins Daily: 0.5 Smoking Cessation Information Provided To Patient: Patient Refused - Recreational Drug Use Recreational Drug Use: No - Living Situation & Occupation Living situation: Reports: with Significant Other Occupation: Employed ED ROS GENERAL - Review of Systems Review Of Systems: See Below Constitutional: Reports: Fever, Chills, Malaise (generalized), Decreased Appetite HEENT: Denies: Ear Pain Respiratory: Reports: Cough. Denies: Shortness of Breath, Sputum Cardiovascular: Denies: Chest Pain GI/Abdominal: Denies: Abdominal Pain, Diarrhea, Nausea, Vomiting Musculoskeletal: Reports: Back Pain (chronic low back pain) Neurological: Reports: Headache ED EXAM, GENERAL - Physical Exam Exam: See Below Exam Limited By: No Limitations General Appearance: Alert, WD/WN, No Apparent Distress Eye Exam: Bilateral Eye: EOMI, Normal Inspection, PERRL Ears: Normal External Exam, Normal Canal, Hearing Grossly Normal, Normal TMs Nose: Normal Inspection Throat/Mouth: Normal Inspection, Normal Lips, Normal Teeth, Normal Gums, Normal Oropharynx, Normal Voice, No Airway Compromise Head: Atraumatic, Normocephalic Neck: Normal Inspection Respiratory/Chest: No Respiratory Distress, Lungs Clear, Normal Breath Sounds, No Accessory Muscle Use, Chest Non-Tender Cardiovascular: Normal Peripheral Pulses, Regular Rate, Rhythm, No Murmur GI/Abdominal: Normal Bowel Sounds, Soft, Non-Tender, No Distention, No Mass (Female) Exam: Normal External Exam, Normal Speculum Exam, Normal Bimanual Exam. No: Products of Conception, Vaginal Bleeding, Vaginal Discharge Extremities: Normal Inspection, Normal Capillary Refill Neurological: Alert, Oriented, Normal Cognition, No Motor/Sensory Deficits Psychiatric: Normal Affect, Normal Mood Skin Exam: Warm, Dry, Intact, Normal Color Course - Vital Signs Last Recorded V/S: Last Vital Signs Temp 98.7 F 05/26/19 12:49 Pulse 98 05/26/19 12:49 Resp 16 05/26/19 12:49 BP 117/69 05/26/19 12:49 Pulse Ox 98 05/26/19 12:49 - Orders/Labs/Meds Orders: Active Orders 24 hr Category Date Time Status Peripheral IV Care [RC] . DIRECTED Care 05/26/19 12:59 Active Sodium Chloride 0.9% [Saline Flush] Med 05/26/19 12:57 Active 10 ml FLUSH ASDIRECTED PRN Peripheral IV Insertion Adult [OM.PC] Stat Oth 05/26/19 12:57 Ordered Medication Orders Sodium Chloride (Saline Flush) 10 ml FLUSH ASDIRECTED PRN PRN Reason: Keep Vein Open Last Admin: 05/26/19 13:19 Dose: 10 ml Labs: Laboratory Tests 05/26/19 05/26/19 05/26/19 Range/Units 13:20 13:20 13:20 WBC 7.76 (3.98-10.04) K/mm3 RBC 4.58 (3.98-5.22) M/mm3 Hgb 12.5 (11.2-15.7) gm/dl Hct 35.9 (34.1-44.9) % MCV 78.4 L (79.4-94.8) fl MCH 27.3 (25.6-32.2) pg MCHC 34.8 (32.2-35.5) g/dl RDW Std Deviation 42.6 (36.4-46.3) fL Plt Count 274 (182-369) K/mm3 MPV 11.2 (9.4-12.3) fl Neut % (Auto) 81.0 H (34.0-71.1) % Lymph % (Auto) 11.1 L (19.3-51.7) % [place] % (Auto) 6.1 (4.7-12.5) % Eos % (Auto) 1.7 (0.7-5.8) Baso % (Auto) 0.1 (0.1-1.2) % Neut # (Auto) 6.29 H (1.56-6.13) K/mm3 Lymph # (Auto) 0.86 L (1.18-3.74) K/mm3 [place] # (Auto) 0.47 H (0.24-0.36) K/mm3 Eos # (Auto) 0.13 (0.04-0.36) K/mm3 Baso # (Auto) 0.01 (0.01-0.08) K/mm3 HCG, Qual Positive H (NEGATIVE) HCG, Quant 12.0 mIU/mL Blood Type 05/26/19 Range/Units 13:20 WBC (3.98-10.04) K/mm3 RBC (3.98-5.22) M/mm3 Hgb (11.2-15.7) gm/dl Hct (34.1-44.9) % MCV (79.4-94.8) fl MCH (25.6-32.2) pg MCHC (32.2-35.5) g/dl RDW Std Deviation (36.4-46.3) fL Plt Count (182-369) K/mm3 MPV (9.4-12.3) fl Neut % (Auto) (34.0-71.1) % Lymph % (Auto) (19.3-51.7) % [place] % (Auto) (4.7-12.5) % Eos % (Auto) (0.7-5.8) Baso % (Auto) (0.1-1.2) % Neut # (Auto) (1.56-6.13) K/mm3 Lymph # (Auto) (1.18-3.74) K/mm3 [place] # (Auto) (0.24-0.36) K/mm3 Eos # (Auto) (0.04-0.36) K/mm3 Baso # (Auto) (0.01-0.08) K/mm3 HCG, Qual (NEGATIVE) HCG, Quant mIU/mL Blood Type A POSITIVE Meds: Medications Generic Name Dose Route Start Last Admin Trade Name Freq PRN Reason Stop Dose Admin Sodium Chloride 10 ml 05/26/19 12:57 05/26/19 13:19 Saline Flush FLUSH 10 ml ASDIRECTED PRN Administration Keep Vein Open Discontinued Medications Generic Name Dose Route Start Last Admin Trade Name Freq PRN Reason Stop Dose Admin Lactated Ringer's 1,000 mls @ 999 mls/hr 05/26/19 13:09 05/26/19 13:19 Ringers, Lactated IV 05/26/19 14:09 999 mls/hr .BOLUS ONE Administration - Re-Assessments/Exams Free Text/Narrative Re-Assessment/Exam: 05/26/19 13:19 Patient presents to the ED for evaluation of her flulike symptoms, and a possible tubal . Transvaginal ultrasound will be obtained along with a CBC, ABO/Rh, hCG quantitative and qualitative to establish clinical . Influenza swab will also be obtained, however patient's clinical symptoms are positive with a clinical diagnosis of influenza. Patient's blood pressure was on the low side of normal, and again on recheck systolically it was in the 90s, I will give her a bag of fluids at this time and reassess need for another bag after the initial one has been completed. 05/26/19 14:54 Patient has vital stable signs, and has not complained of any increased abdominal pain or other symptoms at today's visit. Transvaginal ultrasound demonstrates no intrauterine gestational sac, but no other adnexal abnormalities were appreciated. Patient's hCG qualitative test was positive the hCG quantitative test was only at 12, which could suggest a very very early that is too small to visualize, versus miscarriage, less likely nonvisualized early ectopic. At this time since hCG is quite low, with non- alarming ultrasound results, I did discuss with Dr. Chi, and he recommends close OB follow-up to repeat hCG and discharge her home with strict return precautions. Departure - Departure Time of Disposition: 14:56 Disposition: Home, Self-Care 01 Condition: Fair Clinical Impression: Influenza, Vaginal bleeding affecting early - Discharge Information *PRESCRIPTION DRUG MONITORING PROGRAM REVIEWED*: No *COPY OF PRESCRIPTION DRUG MONITORING REPORT IN PATIENT DONALD: No Prescriptions: Promethazine HCl/Codeine [Prometh-Codein 6.25-10 mg/5 ml] 5 ml PO Q4H PRN #60 ml PRN Reason: Cough Instructions: Influenza, Adult, [id number], Vaginal Bleeding During , First Trimester, [id number] Referrals: PCP,None [Primary Care Provider] - Forms: ED Department Discharge, ED Return to Work/School Form Additional Instructions: You were evaluated in the ER today regarding your flulike symptoms, and positive home test. Your influenza screen was negative at today's visit, however this is not a perfect test and you have been clinically diagnosed with influenza. As this has been over 48 hours since his symptoms started, you are unfortunately you are not a candidate for Tamiflu. You may take 500 mg Tylenol every 6 hours for further pain/fever relief. Please do not take any sort of ibuprofen as you are . Ultrasound did not demonstrate any sort of intrauterine gestational sac, but there were no other adnexal abnormalities noted on today's ultrasound. This could represent very early versus miscarriage versus nonvisualized early ectopic, but this is felt very less likely. Recommend that you follow-up with WASTE MINIMIZATION TECHNICIAN, Dr. Hernandez, sometime this week and have your hCG level repeated in roughly 48 to 72 hours to make sure it is in fact increasing. Please call Dr. Hernandez's office tomorrow to establish care and set up further management. You will be given a copy of your ultrasound report at today's visit, so you may take it have your WASTE MINIMIZATION TECHNICIAN look over at your next visit to help guide your care. Worrisome signs and symptoms that would warrant emergent reevaluation, would be feelings of presyncope/dizziness, increased vaginal bleeding, increased pelvic pain. These would all warrant a return visit to the ER for further evaluation. Please try to take it easy over the next few days, you may want to stick to a clear liquid/bland diet and advance your diet as tolerated over the next few days. Please also try to limit your exposure to others, you are considered contagious 1 week from your diagnosis of influenza. Please return to the ER at any time if your symptoms change or worsen. Sepsis Event Note - Evaluation Sepsis Screening Result: No Definite Risk - Focused Exam Vital Signs: Vital Signs Temp Pulse Resp BP Pulse Ox 05/26/19 12:49 98.7 F 98 16 117/69 98 Date Exam was Performed: 05/26/19 Time Exam was Performed: 15:09 - My Orders Last 24 Hours: My Active Orders 05/26/19 12:57 Sodium Chloride 0.9% [Saline Flush] 10 ml FLUSH ASDIRECTED PRN Peripheral IV Insertion Adult [OM.PC] Stat 05/26/19 12:59 Peripheral IV Care [RC] . DIRECTED - Assessment/Plan Last 24 Hours: My Active Orders 05/26/19 12:57 Sodium Chloride 0.9% [Saline Flush] 10 ml FLUSH ASDIRECTED PRN Peripheral IV Insertion Adult [OM.PC] Stat 05/26/19 12:59 Peripheral IV Care [RC] . DIRECTED
--- NOTE | 2019-05-26 14:29 | US ---
Addendum: I am given the history of a mildly positive beta-hCG. Current study could represent very early which is too small to visualize. Findings could also represent miscarriage. Nonvisualized early ectopic is also within the differential but is felt less likely. --- Addendum1 above dictated on [05/26/2019 14:43] by [Clayton Cuevas, Antwon Jorge] --- --- Addendum1 above signed on [05/26/2019 14:43] by [Clayton Cuevas Hilton J.] --- --- Original report below dictated on [05/26/2019 14:25] by [Clayton Cuevas Hilton J.] --- --- Original report below signed on [05/26/2019 14:27] by [Clayton Cuevas, Antwon Jorge] --- 1st trimester obstetrical ultrasound: Multiple real-time images were obtained transvaginally. Comparison: No previous study for current . Findings: No intrauterine gestational sac is seen. Right and left ovaries appear within normal limits. No adnexal abnormalities are seen. Endometrial thickness is 1.4 cm. Impression: 1. No intrauterine gestational sac. No abnormality is identified. Note: Please correlate if patient has positive test. Diagnostic code #1 This report was dictated in [place] Standard Time --- Addendum1 signed ---
== END 2019-05-26 15:20 | disposition home or self-care (01) ==
LOC: JD.ED 12:42
DX: O20.9 Hemorrhage in early pregnancy, unspecified (principal); O99.511 Diseases of the respiratory system complicating pregnancy, first trimester; J11.1 Influenza due to unidentified influenza virus with other respiratory manifestations; O99.331 Smoking (tobacco) complicating pregnancy, first trimester; F17.210 Nicotine dependence, cigarettes, uncomplicated
CPT/HCPCS: 36415; 76817; 84702; 84703; 85025; 86900; 86901; 87804; 96360; 99284; J7120; 99283

== ENCOUNTER 2019-08-03 13:16 | Emergency (ER) | payer SELFPAY ==
[2019-08-03 14:04] VITALS: BP 109/77; PULSE 77
[2019-08-03] MEDS ORDERED: Lidocaine/EPINEPHrine/Tetracaine Soln 1 ML TOP ONE (14:15)
--- NOTE | 2019-08-03 14:21 | EDM.PDOC ---
ED HPI GENERAL MEDICAL PROBLEM - General Chief Complaint: ENT Problem Stated Complaint: EARING STUCK IN EAR Time Seen by Provider: 08/03/19 13:47 Source of Information: Reports: Patient, RN Notes Reviewed History Limitations: Reports: No Limitations - History of Present Illness INITIAL COMMENTS - FREE TEXT/NARRATIVE: Patient is a 24-year-old female who presents to the ED for the evaluation of an earring back stuck in her right earlobe. Patient notes that her earring felt as if it was "crusty" yesterday, and was unable to get her earring back unscrewed from her post last evening. She notes that she had a few family members try to remove this and they were also unsuccessful. She states it is painful, swollen and throbbing. She did try to go to the walk-in clinic for management but they referred her to the ER as they "did not have the right tools ". Patient denies any other sick-like symptoms. She states that she is only concerned because she could not get the earring out. She has been trying to apply antiseptic liquid to the ear for the suspected infection. - Related Data Allergies Allergy/AdvReac Type Severity Reaction Status Date / Time No Known Allergies Allergy Verified 08/03/19 14:00 Home Meds: Home Meds Promethazine HCl/Codeine [Prometh-Codein 6.25-10 mg/5 ml] 5 ml PO Q4H PRN #60 ml 05/26/19 [Rx] Promethazine HCl/Codeine [Prometh-Codein 6.25-10 mg/5 ml] 5 ml PO Q4H PRN #60 ml 05/29/19 [Rx] Past Medical History Respiratory History: Reports: Asthma Gastrointestinal History: Reports: GERD [employer]GER History: Reports: , Spontaneous (4 spontaneous abortions since July 2018) Musculoskeletal History: Reports: Back Pain, Chronic (lumbar back pain) - Past Surgical History HEENT Surgical History: Reports: Oral Surgery Female Surgical History: Reports: Section, Tubal Ligation (done July 2018) Social & Family History - Family History Family Medical History: Unobtainable - Living Situation & Occupation Living situation: Reports: with Significant Other Occupation: Employed ED ROS ENT - Review of Systems Review Of Systems: Comprehensive ROS is negative, except as noted in HPI. ED EXAM, ENT - Physical Exam Exam: See Below Exam Limited By: No Limitations General Appearance: Alert, WD/WN, No Apparent Distress Eye Exam: Bilateral Eye: EOMI, Normal Inspection, PERRL Ears: Normal Canal, Hearing Grossly Normal, Normal TMs, Auricular Erythema ( noted to posterior lower R ear lobe with serous fluid present, earring back is appreciated but does appear fairly tightly wound onto earring post.) Nose: Normal Inspection Mouth/Throat: Normal Inspection Head: Atraumatic, Normocephalic Neck: Normal Inspection Respiratory/Chest: No Respiratory Distress, Lungs Clear, Normal Breath Sounds, No Accessory Muscle Use, Chest Non-Tender Cardiovascular: Normal Peripheral Pulses, Regular Rate, Rhythm, No Murmur Neurological: Alert, Oriented, Normal Cognition, No Motor/Sensory Deficits Psychiatric: Normal Affect, Normal Mood Skin: Warm, Dry, Intact, No Rash, Other (see ear assessment for detail on earring back) ED ENT PROCEDURES - Foreign Body Removal Indication:: earring back stuck into right posterior ear lobe. Consent Obtained: Patient Performing Doctor:: Kamla Rick Anesthesia Type: Other (see below) (topical LET) Findings: earring back was successfully removed and the area was cleansed with soap and water. Complications: No Course - Vital Signs Last Recorded V/S: Last Vital Signs Temp 98.4 F 08/03/19 14:00 Pulse 77 08/03/19 14:00 Resp 14 08/03/19 14:00 BP 109/77 08/03/19 14:00 Pulse Ox 98 08/03/19 14:00 - Orders/Labs/Meds Orders: Active Orders 24 hr Category Date Time Status EPINEPHrine/Lidocaine/Tetracai [LET Soln] Med 08/03/19 14:15 Once 1 ml TOP ONETIME ONE - Re-Assessments/Exams Free Text/Narrative Re-Assessment/Exam: 08/03/19 14:19 Patient presents to the ED for an earring back stuck in her right earlobe. I did visualize this, we will have to apply topical lidocaine to provide some pain relief, and then will attempt to remove the earring back as tolerated. Departure - Departure Time of Disposition: 14:21 Disposition: Home, Self-Care 01 Condition: Good Clinical Impression: Infected embedded earring - Discharge Information *PRESCRIPTION DRUG MONITORING PROGRAM REVIEWED*: No *COPY OF PRESCRIPTION DRUG MONITORING REPORT IN PATIENT DONALD: No Referrals: PCP,None [Primary Care Provider] - Additional Instructions: You were evaluated in the ER today regarding your earring back stuck in the right ear. There was some topical numbing medication applied and the earring back was removed successfully. This does appear to have a slight infection, please try to keep the area clean and dry with an antiseptic. Would recommend not wearing earrings until the infection has cleared up. Please return to the ER at any time if symptoms change or worsen. Sepsis Event Note - Evaluation Sepsis Screening Result: No Definite Risk - Focused Exam Vital Signs: Vital Signs Temp Pulse Resp BP Pulse Ox 08/03/19 14:00 98.4 F 77 14 109/77 98 Date Exam was Performed: 08/03/19 Time Exam was Performed: 14:16 - My Orders Last 24 Hours: My Active Orders 08/03/19 14:15 EPINEPHrine/Lidocaine/Tetracai [LET Soln] 1 ml TOP ONETIME ONE - Assessment/Plan Last 24 Hours: My Active Orders 08/03/19 14:15 EPINEPHrine/Lidocaine/Tetracai [LET Soln] 1 ml TOP ONETIME ONE
== END 2019-08-03 15:00 | disposition home or self-care (01) ==
LOC: JD.ED 13:16
DX: S00.451A Superficial foreign body of right ear, initial encounter (principal); W45.8XXA Other foreign body or object entering through skin, initial encounter
CPT/HCPCS: 99282; 99283

== ENCOUNTER 2024-01-28 13:16 | Emergency (ER) | payer SELFPAY ==
[2024-01-28 14:13] LABS: BASOPHILS PERCENT AUTO 0.2 % (0.0-1.0); EOSINOPHILS PERCENT AUTO 0.2 % (0.0-6.0); HEMATOCRIT 38.3 % (37.0-47.0); HEMOGLOBIN 12.9 gm/dl (12.0-16.0); IMMATURE GRAN ABSOLUTE AUTO 0.06 K/mm3 (0.00-0.05); IMMATURE GRAN PERCENT AUTO 0.4 % (0.0-0.4); LYMPHOCYTES ABSOLUTE AUTO 0.9 K/mm3 (1.0-4.8); LYMPHOCYTES PERCENT AUTO 5.3 % (24.0-44.0); MEAN CORPUSCULAR HEMOGLOBIN 26.5 pg (28.0-32.0); MEAN CORPUSCULAR HGB CONC 33.7 g/dl (32.0-36.0); MEAN CORPUSCULAR VOLUME 78.6 fl (83.0-99.0); MEAN PLATELET VOLUME 10.9 fl (9.4-12.3); MONOCYTES ABSOLUTE AUTO 0.4 K/mm3 (0.0-0.8); MONOCYTES PERCENT AUTO 2.6 % (0.0-8.0); NEUTROPHILS ABSOLUTE AUTO 15.6 K/mm3 (1.8-7.7); NEUTROPHILS PERCENT AUTO 91.3 % (41.0-71.0); PLATELET COUNT,PLT 343 K/mm3 (150-400); RED BLOOD CELL COUNT 4.87 M/mm3 (4.10-5.30); WHITE BLOOD CELL COUNT,WBC 17.07 K/mm3 (3.9-11.3)
[2024-01-28 14:42] LABS: A/G RATIO 0.9 (1-2); ALANINE AMINOTRANSFERASE,ALT 23 U/L (14-59); ALBUMIN 3.8 g/dl (3.4-5.0); ALKALINE PHOSPHATASE 93 U/L (46-116); ANION GAP 14.4 (5-15); ASPARTATE AMNIOTRANSFERASE,AST 19 U/L (15-37); BILIRUBIN TOTAL 0.4 mg/dL (0.2-1.0); BLOOD UREA NITROGEN,BUN 5 mg/dL (7-18); BUN/CREATININE RATIO 6.3 (14-18); CALCIUM 8.7 mg/dL (8.5-10.1); CARBON DIOXIDE,CO2 26 mEq/L (21-32); CHLORIDE,CL 106 mEq/L (98-107); CREATININE 0.8 mg/dL (0.55-1.02); EST CRCL DRUG DOSING (CG) 85.06 mL/min; ESTIMATED GFR 102 mL/min (>60); GLUCOSE RANDOM 97 mg/dL (70-99); MAGNESIUM 1.8 mg/dL (1.8-2.4); POTASSIUM,K 3.4 mEq/L (3.5-5.1); PROTEIN TOTAL,TP 8.1 g/dl (6.4-8.2); SODIUM,NA 143 mEq/L (136-145)
[2024-01-28 14:44] LABS: TROPONIN I HIGH SENSITIVITY < 4 pg/mL (<=51)
[2024-01-28] MEDS: Sodium Chloride 0.9% 1,000 ML IV SCH (14:44)
[2024-01-28] MEDS: Ondansetron 4 MG/2 ML SDV IVPUSH ONE (14:44)
[2024-01-28] MEDS: Ondansetron 4 MG Tab.DIS PO ONE (14:44)
[2024-01-28 15:08] LABS: SLIDE REVIEW ABNORMAL SMEAR
[2024-01-28 16:47] VITALS: BP 111/80; PULSE 85
== END 2024-01-28 16:40 | disposition home or self-care (01) ==
LOC: JD.ED 13:16
DX: R00.2 Palpitations (principal); R55 Syncope and collapse; R11.2 Nausea with vomiting, unspecified; F17.210 Nicotine dependence, cigarettes, uncomplicated
CPT/HCPCS: 36415; 80053; 83735; 84443; 84484; 85025; 93005; 96361; 96374; 99285; J2405; J7030; 93010; 99284